=== PATIENT | male | born 1945 | race Caucasian/White ===

== ENCOUNTER 2019-02-25 11:42 | Inpatient (IN) | payer OTHER ==
[~2019-02-25] VITALS: Ht 185.4 cm; Wt 85.5 kg
[~2019-02-25 11:42] MED LIST: MIDAZOLAM 1 MG/ML, 5ML ONE; PROPOFOL 10 MG/ML, 100ML IV ONE
--- NOTE | 2019-02-25 11:47 | NUR ---
PT. ARRIVES BY [facility] FROM OUTPATIENT SURGERY WITH C/O S/P PEA CARDIAC ARREST DURING SURGERY. PER [facility] REPORT PT. HAD AN EPISODE OF BRADYCARDIA DURING HIS SURGERY AND RECEIVED 0.5MG ATROPINE THEN WENT INTO PEA. PT. RECEIVED EPINEPHRINE, RESUSCITATION WAS COMPLETED AND ROSC WAS ACHEIVED. PT. IS INTUBATED WITH A 7.5CM ET TUBE WHICH IS 23CM AT THE LIP LINE. PT. HAS GOOD BILAT BREATH SOUNDS AND HIS ETCO2 IS AT 42. PT.'S LUNGS ARE CTA. MM ARE PINK AND MOIST WITH PULSES +2 THROUGHOUT. PT.'S CAP REFILL IS BRISK, LESS THAN 3 SECONDS. PT.'S 12 LEAD EKG WAS DONE. CP MONITOR IS IN PLACE. SIDERAILS ARE UP X 2. VENT SETTINGS ARE FOLLOWS: TV= 500, AC=12, PEEP=5. O2 IS 45%.
[2019-02-25] MEDS ORDERED: PROPOFOL 100 ML IV PRN (12:00)
[2019-02-25] MEDS ORDERED: SODIUM CHLORIDE FLUSH 10ML SYR IVF ONE (12:00)
--- NOTE | 2019-02-25 12:13 | NUR ---
PT.'S BLOOD PRESSURE DECREASED. DISCUSSED WITH DR. GUARDDAO. PT. IS OPENING HIS EYES AND NODDING TO YES AND NO QUESTIONS. PT. WAS MEDICATED WITH VERSED ORDERED AND A NS BOLUS WAS GIVEN.
[2019-02-25 12:32] LABS: MEAN CORPUSCULAR HEMOGLOBIN 31.6 pg (27.5-34.5); MEAN CORPUSCULAR HGB CONC 33.8 g/dL (33.2-36.2); MEAN CORPUSCULAR VOLUME 93.5 fL (81-97); MEAN PLATELET VOLUME 7.4 fL (7.4-10.4); PLATELET COUNT 236 x10^3/uL (130-400); RED BLOOD COUNT 4.53 x10^6/uL (4.38-5.82); RED CELL DISTRIBUTION WIDTH 13.9 % (9.4-14.8)
--- NOTE | 2019-02-25 12:38 | NUR ---
PT. HAS A PIEDRA CATH IN PLACE. CONTINUOUS MONITORING REMAINS IN PLACE. PT.'S HOB IS ELEVATED GREATER THAN 30 DEGREES. PT. HAS BLANKETS FOR WARMTH. ORAL CARE WAS GIVEN BY THE RT. LABS WERE DRAWN AND SENT.
[2019-02-25 12:43] LABS: ALBUMIN 3.4 g/dL (3.4-5.0); ANION GAP 8 mmol/L (5-15); CALCIUM 8.1 mg/dL (8.5-10.1); CHLORIDE 110 mmol/L (98-107); CREATININE 0.98 mg/dL (0.7-1.3); INTERNATIONAL NORMALIZED RATIO 1.06 (0.93-1.1); PROTHROMBIN TIME 11.1 Seconds (9.6-11.5)
[2019-02-25 12:48] LABS: TROPONIN I 0.052 ng/mL (0.000-0.045)
[2019-02-25 12:51] LABS: BASOPHILS # (AUTO) 0.02 x10^3/uL (0-0.1); BASOPHILS % (AUTO) 0 % (0-1); EOSINOPHILS # (AUTO) 0.01 x10^3/uL (0-0.4); EOSINOPHILS % (AUTO) 0 % (1-7); LYMPHOCYTES % (AUTO) 3 % (22-44); MD SCAN; MONOCYTES % (AUTO) 3 % (2-9); NEUTROPHILS # (AUTO) 14.58 x10^3/uL (1.8-6.8); NEUTROPHILS % (AUTO) 95 % (42-75)
--- NOTE | 2019-02-25 12:54 | NUR ---
PT.'S FAMILY REMAINS AT THE BEDSIDE. PT.'S DAUGHTER IS VERY TEARFUL. PT.'S AND FAMILY WERE UPDATED ON THE PLAN OF CARE AND PT. STATUS. HOB REMAINS ELEVATED GREATER THAN 30 DEGREES. PT. HAS THE SIDERAILS UP X 2. PT. REMAINS ON THE VENTILATOR. MOVING EXTREMITIES. PT. AWAKENS TO VERBAL STIMULI AND NODS TO YES AND NO QUESTIONS. PT. IS BEING SEDATED ORDERED.
[2019-02-25] MEDS ORDERED: SODIUM CHLORIDE 0.9% 1,000ML IVBOLUS ONE (13:00)
[2019-02-25] MEDS ORDERED: MIDAZOLAM 1 MG/ML, 5ML IVPush ONE (13:00)
--- NOTE | 2019-02-25 13:14 | NUR ---
PT.'S PROPOFOL GTT DECREASED. PT. IS MOVING EXTREMITIES AND RESPONDING TO VERBAL STIMULI. DISCUSSED WEANING TO EXTUBATION WITH THE ER MD GUARDADO.
--- NOTE | 2019-02-25 13:15 | NUR ---
PT WITH [facility]. DENIED BY [facility]
--- NOTE | 2019-02-25 13:22 | NUR ---
PT.'S PROPOFOL GTT WAS STOPPED. RT IS ATTEMPTING TO EXTUBATE THE PT.
--- NOTE | 2019-02-25 13:45 | NUR ---
PT. WAS EXTUBATED. PT. IS AWAKE, ALERT AND ORIENTED. PT. IS SPEAKING TO HIS FAMILY AT THIS TIME.
--- NOTE | 2019-02-25 13:49 | NUR ---
PT. IS EATING HIS ICE CHIPS AND SPEAKING TO HIS FAMILY. PT. DENIES PAIN AT THIS TIME.
--- NOTE | 2019-02-25 13:55 | NUR ---
PT.'S PIEDRA CATH WAS DCD', CATH TIP INTACT. PT. HAD 400CC CLEAR YELLOW URINE IN THE BAG.
--- NOTE | 2019-02-25 14:06 | NUR ---
PT. VERIFIED THAT HERIBERTO GARZA AND DR. GUARDADO COULD GIVE PT.'S DAUGHTER DANIELLA A NOTE FOR HER WORK THAT STATED HE HAD A LIFE THREATENING EMERGENCY.
--- NOTE | 2019-02-25 14:29 | NUR ---
DR. GUARDADO IS AT THE BEDSIDE DISCUSSING THE PLAN OF CARE WITH THE FAMILY AND THE PT.
[2019-02-25] MEDS ORDERED: SODIUM CHLORIDE FLUSH 10ML SYR IVF PRN (14:30)
--- NOTE | 2019-02-25 15:03 | NUR ---
PT. REMAINS MONITORED. PT. ONLY C/O FEELING HUNGRY. VSS. FAMILY IS AT THE BEDSIDE.
--- NOTE | 2019-02-25 15:27 | NUR ---
PT. WAS REPOSITIONED FOR COMFORT. PT. VITALS MONITORED. PT. IS SIPPING A MILKSHAKE. PT. IS ASKING FOR PAIN MEDS.
[2019-02-25] MEDS ORDERED: MORPHINE SULFATE 4 MG/ML, 1ML IVPush PRN (15:30)
[2019-02-25] MEDS ORDERED: ONDANSETRON 2MG/ML, 2ML IVPush ONE (15:30)
[2019-02-25] MEDS ORDERED: MORPHINE SULFATE 4 MG/ML, 1ML ONE (15:31)
[2019-02-25] MEDS ORDERED: ONDANSETRON 2MG/ML, 2ML ONE (15:31)
--- NOTE | 2019-02-25 15:40 | NUR ---
THE HOSPITALIST IS AT THE BEDSIDE. PT. WAS MEDICATED FOR PAIN ORDERED.
--- NOTE | 2019-02-25 15:52 | NUR ---
REPORT WAS CALLED TO [facility]. PT. IS READY FOR TRANSPORT.
--- NOTE | 2019-02-25 16:00 | NUR ---
BREAK RN: PT BEING TRANSFERRED TO FLOOR. PT LEFT WITH ALL PERSONAL BELONGINGS. PT A&OX4. NO ACUTE DISTRESS NOTED.
[2019-02-25 16:22] VITALS: BP 98/62
[2019-02-25] MEDS ORDERED: VITA1TAB85 PO (16:29)
[2019-02-25] MEDS ORDERED: COCO120O PO (16:29)
[2019-02-25] MEDS ORDERED: CYCLOBENZAPRINE 10 MG TABLET PO PRN (16:30)
[2019-02-25] MEDS ORDERED: NITROGLYCERIN 0.4 MG BOTTLE (25 TABS) SL PRN (16:30)
[2019-02-25] MEDS ORDERED: morphine SULFATE 10 MG/ML, 1ML IVPush PRN (16:30)
[2019-02-25] MEDS ORDERED: hydrALAzine 20 MG/ML, 1ML IVPush PRN (16:30)
[2019-02-25] MEDS ORDERED: ONDANSETRON 2MG/ML, 2ML IVPush PRN (16:30)
[2019-02-25] MEDS ORDERED: DOCUSATE 100 MG CAPSULE PO PRN (16:30)
[2019-02-25] MEDS ORDERED: GUAIFENESIN/COD200MG-20MG/10ML LIQUID PO PRN (16:30)
[2019-02-25] MEDS: LACTATED RINGERS 1,000 ML IV SCH (16:52)
[2019-02-25] MEDS: CEFTRIAXONE PMX 1GM/50ML 50 ML IV SCH (17:22)
[2019-02-25] MEDS: ENOXAPARIN 40 MG/0.4 ML SQ SCH (18:03)
[2019-02-25] MEDS: AZITHROMYCIN 500 MG in SODIUM CHLORIDE 0.9% 250 ML IV SCH (18:03)
[2019-02-25] MEDS: ACETAMINOPHEN 325 MG TABLET PO PRN (20:13)
[2019-02-25 21:59] VITALS: BP 93/57
[2019-02-26] MEDS: OXYcodone IR 5MG TABLET PO PRN ×5 (01:20→22:00)
[2019-02-26] MEDS: LACTATED RINGERS 1,000 ML IV SCH (01:29)
[2019-02-26 01:50] VITALS: BP 95/59
[2019-02-26] MEDS: ACETAMINOPHEN 325 MG TABLET PO PRN (05:22)
[2019-02-26 05:49] LABS: BASOPHILS # (AUTO) 0.01 x10^3/uL (0-0.1); BASOPHILS % (AUTO) 0 % (0-1); EOSINOPHILS # (AUTO) 0.01 x10^3/uL (0-0.4); EOSINOPHILS % (AUTO) 0 % (1-7); LYMPHOCYTES # (AUTO) 0.68 x10^3/uL (1-3.4); LYMPHOCYTES % (AUTO) 7 % (22-44); MD NO; MEAN CORPUSCULAR HEMOGLOBIN 31.3 pg (27.5-34.5); MEAN CORPUSCULAR HGB CONC 33.4 g/dL (33.2-36.2); MEAN CORPUSCULAR VOLUME 93.9 fL (81-97); MEAN PLATELET VOLUME 7.4 fL (7.4-10.4); MONOCYTES # (AUTO) 0.84 x10^3/uL (0.2-0.8); MONOCYTES % (AUTO) 9 % (2-9); NEUTROPHILS # (AUTO) 8.06 x10^3/uL (1.8-6.8); NEUTROPHILS % (AUTO) 84 % (42-75); PLATELET COUNT 232 x10^3/uL (130-400)
[2019-02-26 05:51] LABS: CHLORIDE 109 mmol/L (98-107)
[2019-02-26 06:20] LABS: ANION GAP 8 mmol/L (5-15); CALCIUM 8.6 mg/dL (8.5-10.1); CHOL/HDL RATIO 2.4; CHOLESTEROL, TOTAL 132 mg/dL (140-239); CREATININE 1.08 mg/dL (0.7-1.3); HDL CHOL % 42 % (26-37); HDL CHOLESTEROL (DIRECT) 55 mg/dL (40-60); LDL CHOLESTEROL,CALCULATED 57 mg/dL (54-169); THYROID STIMULATING HORMONE 0.987 mIU/L (0.358-3.740); TRIGLYCERIDES 101 mg/dL (50-200); VLDL CHOLESTEROL 20 mg/dL (0-25)
[2019-02-26 06:25] LABS: HEMOGLOBIN A1C 5.3 % (4.2-6.3)
[2019-02-26 07:46] VITALS: BP 97/52
[2019-02-26 08:08] LABS: TROPONIN I 0.934 ng/mL (0.000-0.045)
[2019-02-26] MEDS: ASPIRIN 81 MG TABLET EC PO SCH (09:03)
[2019-02-26 13:38] VITALS: BP 102/63
[2019-02-26] MEDS: CEFTRIAXONE PMX 1GM/50ML 50 ML IV SCH (16:27)
[2019-02-26] MEDS: ENOXAPARIN 40 MG/0.4 ML SQ SCH (17:29)
[2019-02-26] MEDS: AZITHROMYCIN 500 MG in SODIUM CHLORIDE 0.9% 250 ML IV SCH (17:29)
[2019-02-26 21:03] VITALS: BP 113/69
[2019-02-26] MEDS: ATORVASTATIN 20 MG TABLET PO SCH (21:59)
[2019-02-26] MEDS: GUAIFENESIN 200 MG TABLET PO SCH (22:00)
[2019-02-27 01:02] VITALS: BP 114/63
[2019-02-27] MEDS: OXYcodone IR 5MG TABLET PO PRN ×5 (02:31→21:53)
[2019-02-27 05:30] LABS: CHLORIDE 109 mmol/L (98-107)
[2019-02-27 05:40] LABS: CALCIUM 8.3 mg/dL (8.5-10.1); CREATININE 1.02 mg/dL (0.7-1.3); TROPONIN I 0.266 ng/mL (0.000-0.045)
[2019-02-27 05:46] LABS: ANION GAP 6 mmol/L (5-15)
[2019-02-27] MEDS: ASPIRIN 81 MG TABLET EC PO SCH (06:44)
[2019-02-27] MEDS: GUAIFENESIN 200 MG TABLET PO SCH ×4 (06:44→20:09)
[2019-02-27 07:58] VITALS: BP 117/71
[2019-02-27 09:27] LABS: BASOPHILS # (AUTO) 0.04 x10^3/uL (0-0.1); BASOPHILS % (AUTO) 1 % (0-1); EOSINOPHILS # (AUTO) 0.04 x10^3/uL (0-0.4); EOSINOPHILS % (AUTO) 1 % (1-7); LYMPHOCYTES # (AUTO) 0.79 x10^3/uL (1-3.4); LYMPHOCYTES % (AUTO) 10 % (22-44); MD NO; MEAN CORPUSCULAR HEMOGLOBIN 30.9 pg (27.5-34.5); MEAN CORPUSCULAR VOLUME 93.7 fL (81-97); MEAN PLATELET VOLUME 7.7 fL (7.4-10.4); MONOCYTES # (AUTO) 0.84 x10^3/uL (0.2-0.8); MONOCYTES % (AUTO) 11 % (2-9); NEUTROPHILS % (AUTO) 79 % (42-75); PLATELET COUNT 220 x10^3/uL (130-400); RED BLOOD COUNT 3.95 x10^6/uL (4.38-5.82); RED CELL DISTRIBUTION WIDTH 14.1 % (9.4-14.8)
[2019-02-27 13:36] VITALS: BP 130/70
[2019-02-27] MEDS: ENOXAPARIN 40 MG/0.4 ML SQ SCH (16:54)
[2019-02-27] MEDS: AZITHROMYCIN 500 MG in SODIUM CHLORIDE 0.9% 250 ML IV SCH (16:54)
[2019-02-27] MEDS: CEFTRIAXONE PMX 1GM/50ML 50 ML IV SCH (18:14)
[2019-02-27] MEDS: ATORVASTATIN 20 MG TABLET PO SCH (20:09)
[2019-02-27 20:16] VITALS: BP 151/75
[2019-02-27] MEDS: ACETAMINOPHEN 325 MG TABLET PO PRN (21:53)
[2019-02-28 01:19] VITALS: BP 113/68
[2019-02-28] MEDS: ASPIRIN 81 MG TABLET EC PO SCH (05:28)
[2019-02-28] MEDS: ACETAMINOPHEN 325 MG TABLET PO PRN ×3 (05:28→21:07)
[2019-02-28] MEDS: GUAIFENESIN 200 MG TABLET PO SCH ×4 (05:29→21:07)
[2019-02-28 05:53] LABS: CHLORIDE 108 mmol/L (98-107)
[2019-02-28 06:01] LABS: ANION GAP 5 mmol/L (5-15); CALCIUM 8.3 mg/dL (8.5-10.1); CREATININE 0.97 mg/dL (0.7-1.3)
[2019-02-28 07:25] VITALS: BP 120/72
[2019-02-28] MEDS: SODIUM CHLORIDE 0.9% 1,000 ML IV SCH ×2 (12:12→21:09)
[2019-02-28 13:24] VITALS: BP 130/77
[2019-02-28] MEDS: ENOXAPARIN 40 MG/0.4 ML SQ SCH (15:56)
[2019-02-28] MEDS: AZITHROMYCIN 500 MG in SODIUM CHLORIDE 0.9% 250 ML IV SCH (17:10)
[2019-02-28] MEDS: CEFTRIAXONE PMX 1GM/50ML 50 ML IV SCH (18:16)
[2019-02-28 19:23] VITALS: BP 124/67
[2019-02-28] MEDS: ATORVASTATIN 20 MG TABLET PO SCH (21:07)
[2019-03-01 02:02] VITALS: BP 127/72
[2019-03-01] MEDS: ACETAMINOPHEN 325 MG TABLET PO PRN (03:52)
[2019-03-01] MEDS: SODIUM CHLORIDE 0.9% 1,000 ML IV SCH ×4 (05:21→12:52)
[2019-03-01] MEDS ORDERED: MIDAZOLAM 1 MG/ML, 2ML ONE (06:10)
[2019-03-01] MEDS ORDERED: VERAPAMIL 2.5 MG/ML, 2ML ONE (06:11)
[2019-03-01] MEDS ORDERED: LIDOCAINE-MPF 1%, 5ML ONE (06:11)
[2019-03-01] MEDS ORDERED: HEPARIN 1,000 UNITS/ML, 10ML ONE (06:11)
[2019-03-01] MEDS ORDERED: FENTANYL PF 100 MCG/2ML ONE (06:11)
[2019-03-01] MEDS ORDERED: NITROGLYCERIN 5 MG/ML, 10ML ONE (06:11)
[2019-03-01] MEDS: GUAIFENESIN 200 MG TABLET PO SCH ×2 (06:25→11:07)
[2019-03-01] MEDS: ASPIRIN 81 MG TABLET EC PO SCH (06:25)
[2019-03-01] MEDS ORDERED: CEFD300C37 PO (12:37)
[2019-03-01] MEDS ORDERED: AZIT500T5 PO (12:37)
[2019-03-01] MEDS ORDERED: ATOR20TA37 PO (12:37)
[2019-03-01] MEDS ORDERED: ASPI81TA45 PO (12:37)
[2019-03-01] MEDS ORDERED: GUAI200T3 PO (12:37)
[2019-03-01 13:23] VITALS: BP 149/78
== END 2019-03-01 13:45 | disposition home or self-care (01) | DRG 917 ==
LOC: ED 13:02 → EDIP 14:01 → 5SO 16:03 → DCLOUNGE 03-01 13:32
PROVIDERS: ADMIT Internal Medicine; ATTEND Internal Medicine
PROC: 5A1935Z Respiratory Ventilation, Less than 24 Consecutive Hours (ICD-10-PCS; 2019-02-25)
PROC: 0BH17EZ Insertion of Endotracheal Airway into Trachea, Via Natural or Artificial Opening (ICD-10-PCS; 2019-02-25)
PROC: 4A023N7 Measurement of Cardiac Sampling and Pressure, Left Heart, Percutaneous Approach (ICD-10-PCS; principal; 2019-03-01)
PROC: B2111ZZ Fluoroscopy of Multiple Coronary Arteries using Low Osmolar Contrast (ICD-10-PCS; 2019-03-01)
PROC: B2151ZZ Fluoroscopy of Left Heart using Low Osmolar Contrast (ICD-10-PCS; 2019-03-01)
DX: T88.59XA Other complications of anesthesia, initial encounter (principal); I46.8 Cardiac arrest due to other underlying condition; J18.9 Pneumonia, unspecified organism; J96.01 Acute respiratory failure with hypoxia; T41.45XA Adverse effect of unspecified anesthetic, initial encounter; Y83.8 Other surgical procedures as the cause of abnormal reaction of the patient, or of later complication, without mention of misadventure at the time of the procedure; Y92.89 Other specified places as the place of occurrence of the external cause; K40.90 Unilateral inguinal hernia, without obstruction or gangrene, not specified as recurrent; Z87.891 Personal history of nicotine dependence
CPT/HCPCS: 36415; 36600; 71045; 80048; 80061; 82040; 82803; 83036; 83735; 84100; 84443; 84484; 85025; 85610; 85730; 87040; 93005; 93306; 93458; 94002; 96361; 96374; 96375; 99156; C1769; C1894; G0378; J0456; J0696; J1644; J1650; J2250; J2405; J2704; J3010; J7030; J7050; J7120; Q9967